=== PATIENT | female | born 1970 | race Caucasian/White ===

== ENCOUNTER 2018-07-29 12:26 | Outpatient (CLI) | payer OTHER, SELFPAY ==
--- NOTE | 2018-07-29 12:00 | DI.RAD_ITS ---
SYMPTOMS/DIAGNOSIS: COUGH, POSSIBLE PNEUMONIA, R09.89 PA AND LATERAL CHEST: Comparison 10/19/16. The heart is normal in size. The lungs are clear. The mediastinal structures and pleura appear intact. CONCLUSION: Normal chest.
== END 2018-07-29 12:46 ==
PROVIDERS: PCP Student in an Organized Health Care Education/Training Program; Visit Provider Student in an Organized Health Care Education/Training Program
DX: R05 Cough (principal); R09.89 Other specified symptoms and signs involving the circulatory and respiratory systems
CPT/HCPCS: 71046

== ENCOUNTER 2018-08-17 10:31 | Outpatient (CLI) | payer OTHER, SELFPAY ==
--- NOTE | 2018-08-17 14:18 | DI.RAD_ITS ---
SYMPTOMS/DIAGNOSIS: COUGH X 1 MO, EX-SMOKER, H/O WALKING PNEUMONIA, R05 PA AND LATERAL CHEST: The heart is normal in size. The lungs are clear. The mediastinal structures and pleura appear intact. SUMMARY: Normal chest.
== END 2018-08-17 10:51 ==
PROVIDERS: PCP Student in an Organized Health Care Education/Training Program; Visit Provider Student in an Organized Health Care Education/Training Program
DX: R05 Cough (principal); Z87.891 Personal history of nicotine dependence
CPT/HCPCS: 71046

== ENCOUNTER 2018-09-30 11:48 | Outpatient (CLI) | payer OTHER, SELFPAY ==
[2018-09-30 12:15] LABS: Abs Immature Grans 0.01 k/cumm (0.0-0.09); Absolute Basophil Count 0.02 k/cumm (0.0-0.2); Absolute Eosinophil Count 0.08 k/cumm (0.0-0.7); Absolute Lymphocyte Count 1.26 k/cumm (1.2-3.4); Absolute Monocyte Count 0.38 k/cumm (0.11-0.7); Absolute Neutrophil Count 4.33 k/cumm (1.2-6.7); Basophils % 0.3; Eosinophils % 1.3; HCT 42.2 % (36.0-46.0); HGB 14.1 g/dL (12.0-15.5); Immature Grans % 0.2; Lymphocytes % 20.7; Mean Corp. HGB Concentration 33.4 g/dL (32.0-36.0); Mean Corpuscular Hemoglobin 30.2 pg (27.0-33.0); Mean Corpuscular Volume 90.4 fL (80-95); Mean Platelet Volume 10.4 fL (8.0-11.0); Monocytes % 6.3; Neutrophils % 71.2; Platelet Count 235 x1000/uL (130-400); RBC 4.67 m/cumm (4.00-5.20); RBC Distribution Width 13.9 % (11.7-14.6); White Blood Cell Count 6.08 k/cumm (4.4-10.8)
[2018-09-30 12:57] LABS: ALT 30 U/L (12-78); AST 16 U/L (15-37); Albumin 3.8 g/dL (3.4-5.0); Alkaline Phosphatase 36 U/L (46-116); Anion Gap 10.5 mmol/L (3-11); BUN 10 mg/dL (7-18); Bilirubin, Total 0.5 mg/dL (0.2-1.0); CO2 28.5 mmol/L (21.0-32.0); CREATININE 0.64 mg/dL (0.55-1.02); Chloride 101 mmol/L (98-107); Glucose 96 mg/dL (70-100); Potassium 3.9 mmol/L (3.5-5.1); Sodium 140 mmol/L (136-145); Total Protein 7.1 g/dL (6.4-8.2)
== END 2018-09-30 12:08 ==
PROVIDERS: PCP Student in an Organized Health Care Education/Training Program; Visit Provider Nurse Practitioner Family
DX: R10.32 Left lower quadrant pain (principal)
CPT/HCPCS: 36415; 80053; 85025

== ENCOUNTER 2019-01-16 07:11 | Outpatient (CLI) | payer OTHER, SELFPAY ==
[2019-01-16 08:52] LABS: Calculated LDL 144; Cholesterol 234 mg/dL (50-200); Glucose 83 mg/dL (70-100); HDL Cholesterol 73 mg/dL (40-60); TSH (W/Ref FT4) 0.34 uIU/mL (0.358-3.74); Triglyceride 85 mg/dL (30-150)
[2019-01-16 09:36] LABS: FREE T4 0.93 ng/dL (0.76-1.46)
== END 2019-01-16 07:31 ==
PROVIDERS: PCP Student in an Organized Health Care Education/Training Program; Visit Provider Nurse Practitioner Family
DX: Z13.220 Encounter for screening for lipoid disorders (principal); E04.1 Nontoxic single thyroid nodule; Z13.1 Encounter for screening for diabetes mellitus
CPT/HCPCS: 36415; 80061; 82947; 83721; 84439; 84443

== ENCOUNTER 2019-02-01 00:44 | Outpatient (CLI) | payer OTHER, SELFPAY ==
--- NOTE | 2019-02-01 07:51 | DI.MAMMO_ITS ---
SYMPTOM/DIAGNOSIS: SCREENING, Z12.31 MAMMOGRAMS: Mammograms were interpreted according to the usual protocol including computer analysis with CAD system, tomosynthesis and C view imaging. The breasts are heterogeneously dense. No dominant mass or clumped microcalcification is identified in either breast. The current examination is compared with previous examinations including 09/2017 and there is question of increased prominence of a focal area of asymmetric density projected in the central portion of the right breast on CC view. Additional mammographic views of this area are requested for further evaluation to evaluate the possibility of a mass. No other specific abnormality is seen. No additional change in comparison with the previous examinations. IMPRESSION: Additional mammographic views of the right breast requested as described above. Right breast ultrasound recommended as well depending on results of the additional mammographic views. Category 0. Breast density, Category C. MQSA ASSESSMENT OF FINDINGS: Incomplete: Needs additional imaging evaluation. Category 0. Patient will receive a letter notifying them of these results. Bi-RADS category C. The breasts are heterogeneously dense, which may obscure small masses.
== END 2019-02-01 01:04 ==
PROVIDERS: PCP Student in an Organized Health Care Education/Training Program; Visit Provider Nurse Practitioner Family
DX: Z12.31 Encounter for screening mammogram for malignant neoplasm of breast (principal); R92.8 Other abnormal and inconclusive findings on diagnostic imaging of breast
CPT/HCPCS: 77063; 77067

== ENCOUNTER 2019-02-08 08:29 | Outpatient (CLI) | payer OTHER, SELFPAY ==
--- NOTE | 2019-02-08 09:00 | DI.COMBO_ITS ---
SYMPTOM/DIAGNOSIS: F/U INCREASED PROMINENCE OF ASYMMETRIC DENSITY RT BREAST ON MAMMOGRAM RIGHT BREAST ADDITIONAL VIEWS AND RIGHT BREAST ULTRASOUND: Additional images are interpreted according to the usual protocol including tomosynthesis and 2D imaging. A craniocaudad compression spot film of the right breast was obtained today and reveals dense fibroglandular tissue. There is no definite mass. At ultrasound, no cyst or mass is seen. IMPRESSION: No evidence of malignancy, category 1, yearly screening mammography is recommended. Breast density, Category C. MQSA ASSESSMENT OF FINDINGS: Negative. Category 1. Patient will receive a letter notifying them of these results. Bi-RADS category C. The breasts are heterogeneously dense, which may obscure small masses.
== END 2019-02-08 08:49 ==
PROVIDERS: PCP Student in an Organized Health Care Education/Training Program; Visit Provider Nurse Practitioner Family
DX: Z12.31 Encounter for screening mammogram for malignant neoplasm of breast (principal); R92.8 Other abnormal and inconclusive findings on diagnostic imaging of breast; N64.59 Other signs and symptoms in breast
CPT/HCPCS: 76642; 77063; 77067

== ENCOUNTER 2019-11-15 10:42 | Outpatient (CLI) | payer OTHER, SELFPAY ==
--- NOTE | 2019-11-15 09:15 | DI.RAD_ITS ---
EXAM: XR HIP RT COMPLETE AP PELVIS INDICATION: pain COMPARISON: No exams were available for comparison TECHNIQUE: 2D digital imaging was performed. FINDINGS: Mild bilateral acetabular spurring. The hip joint spaces are well maintained. SI joints and pubic s ymphysis are unremarkable. IMPRESSION: Mild degenerative changes of both hips. DATA REPOSITORY: RADIATION DOSE DELIVERED:
== END 2019-11-15 11:02 ==
PROVIDERS: PCP Student in an Organized Health Care Education/Training Program; Visit Provider Orthopaedic Surgery
DX: M25.551 Pain in right hip (principal); M16.0 Bilateral primary osteoarthritis of hip
CPT/HCPCS: 73502

== ENCOUNTER 2020-06-11 11:43 | Emergency (ER) | payer OTHER, SELFPAY ==
[2020-06-11] VITALS (20 sets, daily range): BP systolic 153–169; BP diastolic 70–89; PULSE 78–114; RESP 10–30; TEMP 36.4–36.6; O2SAT 98–99
--- NOTE | 2020-06-11 11:45 | RT.EKG_ITS ---
APPROVED REPORT Exam: Resting ECG Patient Location: E HR:100 bpm ECG Measurements Heart Rate 100 AXIS MT 154 P 60 QRSd 95 QRS 67 QT 335 T 1 QTc 432 Conclusion Fast sinus arrhythmia...V-rate 86-113, mean> 99 Anteroseptal infarct, old...Q >40mS, V1-V2. Sinus. PVCs. No STEMI. I have reviewed and interpreted ECG and agree with software generated interpretation.
--- NOTE | 2020-06-11 11:48 | W.ED.GENAD ---
Discharge Plan Disposition Patient Disposition: HOME Condition: Improving Discharge Details Clinical Impression: Dyspnea, Thoracic back pain Primary Care Provider: Roxana Breen ED Provider: Soraya Narayan Home Meds and New Rx's Prescriptions: Continued epinephrine 0.3 mg/0.3 mL auto-injector 0.3 mg IM PRN Qty: 2 RF: 1 PROVENTIL HFA 18 GM HFA.AER.AD 2 puff Inhalation Q4H PRN Qty: 1 RF: 11 fluticasone propionate 50 mcg/actuation spray,suspension 2 spray JAYDEN DAILY Qty: 16 RF: 2 Flovent HFA 110 mcg/actuation HFA aerosol inhaler 2 puff Inhalation BID Qty: 12 RF: 2 ibuprofen 200 MG tablet 1 tab PO PRN RF: 0 loratadine 10 MG tablet 1 tab PRN PRNRF: 0 docusate sodium [Stool Softener] 100 MG capsule 100 mg PO HS RF: 0 L.acidoph, paracasei,B. lactis 1 EACH capsule 1 ea PO DAILY RF: 0 Discharge Instructions Instructions: Dyspnea (ED), Back Pain (ED) Additional Instructions: Drink plenty of fluids and get plenty of rest. Take the Zofran as needed and directed for nausea and vomiting. Alternate tylenol and motrin as needed and directed for pain. Call your primary care doctor's office tomorrow to schedule a follow-up appointment for reevaluation. Return immediately to the emergency department if you develop any worsening or new concerning symptoms. Discharge Data Discharge Date/Time-TO BE ENTERED AT DEPARTURE: 06/11/20 16:50 Discharge Physician: Soraya Narayan Medical Decision Making 1200 -- 50-year-old female with a history of asthma and seasonal allergies who presents for cough, diarrhea, nausea and headache that are resolving, and shortness of breath and left mid back pain since last night. EKG on arrival notes a rate of 100, PVCs, sinus with [address] depression in aVF, V4 and V5. No acute ST elevation. No old EKG to compare. Covid test obtained yesterday and negative. Blood pressure is elevated. Patient appears nontoxic and in no acute distress. Her lungs are clear. She has no chest or back tenderness. Differential diagnosis includes viral syndrome, PE, ACS, electrolyte abnormality, dehydration. Will place an IV, bolus IV fluids, screening labs, CT chest and plan for repeat troponin and EKG. 1400 -- labs and imaging reviewed. White blood cell count 4.21. Potassium 2.9, will replete. Troponin negative. CT chest negative. Patient states her shortness of breath is resolved. Will give a dose of Toradol for her back pain and reassess. 1600 --repeat troponin negative. EKG now notes resolution of ST depression noted in first EKG. There is no STEMI and is nondiagnostic. Patient reassessed and she denies any acute symptoms at this time and feels good to go home. She denies any shortness of breath or back pain. Advised to follow up with the primary care doctor for re-evaluation. Usual and customary return precautions given prior to discharge. Medical Records Medical records reviewed: Yes I reviewed the patient's medical records. Imaging Data Radiologic Study: Radiologist's impression: CT CHEST PE CTA CLINICAL HISTORY: L sided pleuritic chest pain, r/o PE. TECHNIQUE: Imaging Protocol: Axial CT angiography was performed with multi-slice acquisition and multi-planar and/or 3D reconstructions. CONTRAST MATERIAL: Intravenous: Omnipaque 350 Contrast volume:61 mL COMPARISON: CT CHEST WITH CONTRAST from 01/27/2017 CT ABD PELVIS WITH CONTRAST from 04/12/2017 FINDINGS: Pulmonary Arteries: No evidence of filling defect to suggest pulmonary emboli. Tracheobronchial tree: Patent where visualized. Mediastinum and May: No dominant adenopathy or fluid collection. Multiple thyroid nodules are present. The largest measures 1.1 cm. Nonemergent thyroid ultrasound should be considered for further evaluation. Pulmonary parenchyma: No consolidation or dominant measurable mass. No architectural distortion. There is stable peripheral scarring in the right upper lobe. This is unchanged compared to 01/27/2017. Pleura: No effusion or pneumothorax. Heart: The heart is not dilated. No coronary artery calcifications are seen. No pericardial effusion. Aorta: Thoracic aorta non-dilated. No evidence of dissection. Upper abdomen: Unremarkable. Bones: Normal. Soft tissues: Unremarkable. IMPRESSION: No evidence of pulmonary embolism, thoracic aortic dissection or aneurysm. Lab Data Lab results reviewed: Yes I reviewed the patient's lab results. Labs: Laboratory Tests Range/Units 06/11/20 06/11/20 06/11/20 12:04 12:04 12:04 WBC (4.4-10.8) 10^3/uL 4.21 L RBC (3.93-5.22) 10^6/uL 5.13 Hgb (11.2-15.7) g/dL 15.2 Hct (36.0-46.0) % 45.4 MCV (80-95) fL 88.5 MCH (27.0-33.0) pg 29.6 MCHC (32.0-36.0) % 33.5 RDW (11.7-14.6) % 13.0 Plt Count (130-400) 10^3/uL 253 MPV (8.0-11.0) fL 10.1 Immature Gran % 0.2 Neutrophils % 59.4 Lymphocytes % 29.7 Monocytes % 7.4 Eosinophils % 2.6 Basophils % 0.7 Nucleated RBC % % 0 Absolute Neutrophils (1.2-6.7) 10^3/uL 2.50 Absolute Lymphocytes (1.2-3.4) 10^3/uL 1.25 Absolute Monocytes (0.1-0.8) 10^3/uL 0.31 Absolute Eosinophils (0.0-0.7) 10^3/uL 0.11 Absolute Basophils (0.0-0.2) 10^3/uL 0.03 PT (9.3-11.0) sec 10.6 INR (0.9-1.1) 1.1 APTT (21.0-27.5) sec 24.1 Sodium (136-145) mmol/L 135 L Potassium (3.5-5.1) mmol/L 2.9 L* Chloride (98-107) mmol/L 100 Carbon Dioxide (21.0-32.0) mmol/L 27.9 Anion Gap (3-11) mmol/L 7.1 BUN (7-18) mg/dL 9 Creatinine (0.55-1.02) mg/dL 0.87 Estimated GFR/1.73 m2 (mL/min/1.73m2) >= 60.00 Glucose (74-106) mg/dL 127 H Calcium (8.5-10.1) mg/dL 8.9 Magnesium (1.8-2.4) mg/dL 1.9 Total Bilirubin (0.2-1.0) mg/dL 0.5 AST (15-37) U/L 12 L ALT (14-59) U/L 15 Alkaline Phosphatase (46-116) U/L 43 L Troponin I (<0.06) ng/mL < 0.05 Total Protein (6.4-8.2) g/dL 7.4 Albumin (3.4-5.0) g/dL 4.1 Range/Units 06/11/20 15:15 WBC (4.4-10.8) 10^3/uL RBC (3.93-5.22) 10^6/uL Hgb (11.2-15.7) g/dL Hct (36.0-46.0) % MCV (80-95) fL MCH (27.0-33.0) pg MCHC (32.0-36.0) % RDW (11.7-14.6) % Plt Count (130-400) 10^3/uL MPV (8.0-11.0) fL Immature Gran % Neutrophils % Lymphocytes % Monocytes % Eosinophils % Basophils % Nucleated RBC % % Absolute Neutrophils (1.2-6.7) 10^3/uL Absolute Lymphocytes (1.2-3.4) 10^3/uL Absolute Monocytes (0.1-0.8) 10^3/uL Absolute Eosinophils (0.0-0.7) 10^3/uL Absolute Basophils (0.0-0.2) 10^3/uL PT (9.3-11.0) sec INR (0.9-1.1) APTT (21.0-27.5) sec Sodium (136-145) mmol/L Potassium (3.5-5.1) mmol/L Chloride (98-107) mmol/L Carbon Dioxide (21.0-32.0) mmol/L Anion Gap (3-11) mmol/L BUN (7-18) mg/dL Creatinine (0.55-1.02) mg/dL Estimated GFR/1.73 m2 (mL/min/1.73m2) Glucose (74-106) mg/dL Calcium (8.5-10.1) mg/dL Magnesium (1.8-2.4) mg/dL Total Bilirubin (0.2-1.0) mg/dL AST (15-37) U/L ALT (14-59) U/L Alkaline Phosphatase (46-116) U/L Troponin I (<0.06) ng/mL < 0.05 Total Protein (6.4-8.2) g/dL Albumin (3.4-5.0) g/dL ECG Data Attestation: I personally reviewed and interpreted this ECG (s) as follows: Interpretation: #1 -- rate of 100, sinus, PVCs, T wave inversion in lead III. 1mm ST depression in aVF, V4-5, no acute ST elevation, OK 154, QRS 95, QTc 432. #2 -- rate of 86, sinus, PVCs. T wave inversion in lead III. Now noted resolution of ST depression in aVF, V4 V5.. No acute ST elevation. OK 139. QRS 88. QTc 424. HPI General Mode of arrival: ambulatory. Date/Time Provider Initiated Documentation: 06/11/20 11:47. Limitations to Documentation: no limitations. Information obtained by: patient. HPI Narrative: Pt is a 50yo F w/ a h/o asthma, endometrial ablation, tubal ligation who presents to the ED w/ a c/o nausea over the past 2 days and headache yesterday which are now improving and shortness of breath and left mid back pain that is worse with deep breath since last night. Patient states the symptom bothering her the most at this time is the shortness of breath and left mid back pain. She denies any anterior chest pain, fever, vomiting, abdominal pain, recent travel or recent known sick contacts. She states last week she was in a small gathering of approximately 15 people who were visiting her dying grandmother. She states everyone was wearing a mask and she denies any known exposure to any sick contacts or someone with coronavirus. She had a Covid test obtained yesterday at the [facility] and result today was negative. Patient admits to some mild cough but denies any significant production. She does also admit to a few episodes of diarrhea. She denies any loss of sense of smell or taste. She currently denies any headache or neck pain. Related Data Home Medications Medication Instructions Recorded Confirmed ibuprofen 1 tab PO PRN 11/17/13 06/11/20 loratadine 1 tab PRN PRN 12/31/14 06/11/20 L.acidoph, paracasei,B. lactis 1 ea PO DAILY 10/08/17 06/11/20 docusate sodium [Stool Softener] 100 mg PO HS 10/08/17 06/11/20 epinephrine 0.3 mg/0.3 mL 0.3 mg IM PRN #2 each 08/17/18 06/11/20 injection, auto-injector fluticasone propionate 50 2 spray JAYDEN DAILY #16 gm 12/15/19 06/11/20 mcg/actuation nasal spray,suspension fluticasone propionate 110 2 puff INHALATION BID #12 gm 04/17/20 06/11/20 mcg/actuation HFA aerosol inhaler Previous Rx's Medication Instructions Recorded epinephrine 0.3 mg/0.3 mL 0.3 mg IM PRN #2 each 08/17/18 injection, auto-injector fluticasone propionate 50 2 spray JAYDEN DAILY #16 gm 12/15/19 mcg/actuation nasal spray,suspension fluticasone propionate 110 2 puff INHALATION BID #12 gm 04/17/20 mcg/actuation HFA aerosol inhaler Allergies Allergy/AdvReac Type Severity Reaction Status Date / Time venom-honey bee Allergy Severe Verified 06/11/20 12:04 metronidazole [From Flagyl] AdvReac Intermediate nausea/diar Verified 06/11/20 12:04 charlie oxycodone HCl [From Percocet] AdvReac Intermediate Visual Verified 06/11/20 12:04 Disturbances COMPOUND BENZOIN TINCTURE AdvReac Intermediate BLISTER/RED Uncoded 06/11/20 12:04 NESS Review of Systems All systems reviewed & are unremarkable except as noted in HPI and below Constitutional Constitutional: Reports as per HPI, Denies chills, Denies fever(s) and Reports headache(s) Eyes Eyes: Denies blurry vision ENT Ears, Nose, Mouth, and Throat: Denies dizziness, Reports headache(s), Denies sore throat and Denies throat swelling Cardiovascular Cardiovascular: Denies chest pain and Reports dyspnea Respiratory Respiratory: Denies cough and Reports dyspnea Gastrointestinal Gastrointestinal: Denies abdominal pain, Denies diarrhea, Reports nausea and Denies vomiting Genitourinary Genitourinary: Denies hematuria and Denies dysuria Musculoskeletal Musculoskeletal: Reports back pain and Denies numbness Integumentary/Breasts Skin/Breast: Denies lesions and Denies rash Neurologic Neurologic: Denies dizziness, Reports headache(s), Denies localized weakness and Denies numbness Allergic/Immunologic Allergic/Immunologic: Denies throat swelling [facility] Medical History Diverticulitis (09/2017) 4th episode 09/30/18 with immediate relief and good resolution with Augmentin. Hx 3 DIV flares with NEG [place], confirming diffuse diverticulosis (09/2017). Unable to tolerate Cipro/Flagyl. 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 Hx Bx per 09/09/16 [facility] note. [ ] re-image 08/2017 Repetitive motion disorder of right shoulder Repetitive motion disorder of right shoulder Seems directly related to work motion between keyboard, mouse, and adding machine. [ ] PT [ ] Ortho [ ] Occ Med Right anterior shoulder pain Seasonal allergic rhinitis due to pollen (09/06/17) Summtime; takes antihistamine Surgical History section (~1991) Colonoscopy - MAC (10/12/17) Endometrial Ablation (~2008) FNA bx multinod goiter (06/24/12) Benign left foot surgery bone spurs on toe Ligation of fallopian tube (~04/1997) Family History Mother Hyperlipidemia Thyroid disorder Sister Thyroid disorder Maternal Aunt Breast cancer maternal Thyroid disorder Brother Diabetes Paternal Grandmother Diabetes Social History Smoking/Tobacco Use Status: Former Tobacco Use Smoking risk assessment performed?: Yes Alcohol Intake: current Alcohol Intake frequency: holidays/special occasions only Drug use: Never Substance use type: does not use Household members: spouse Housing: house Number of Children: 1 number of grandchildren: 2 current occupation: Director of patient accounts [employer] What type of physical activity do you participate in: none Seatbelt use: always Drive intox or ride w/intox restaurant delivery driver: No Working smoke detector in home: Yes Fire extinguisher in home: Yes Carbon monox detector in home: Yes Do you feel safe at home: Yes Do you feel safe in your relationship?: Yes Exam Const General: cooperative and healthy appearing Orientation: alert and awake HENMT Head: normal to inspection Ears: hearing grossly normal bilaterally, external ears normal and TM's normal bilaterally General nose exam: external nose normal Face and sinus: normal facial exam Mouth: oral mucosae normal Teeth and gingiva: dentition normal Throat: posterior oropharynx normal Eyes General: appearance normal, both eyes and all related structures Eyelids: eyelids normal Pupils: PERRL EOM: EOM intact bilaterally Neck Neck: normal visual inspection Lymphatic: no lymphadenopathy noted Chest Chest: normal inspection of the chest, normal palpation of entire chest wall and no tenderness Resp Effort & Inspection: normal respiratory effort and able to speak in complete sentences Auscultation: clear to auscultation bilaterally Cardio Rate: regular rate Rhythm: regular rhythm GI Inspection: normal to inspection Palpation: soft, not firm, no guarding, no hepatosplenomegaly, no masses and nontender Auscultation: normal bowel sounds Back/Spine/Pelvis Back: no CVA tenderness Thoracic/Lumbar Spine: thoracic and lumbar spine normal to inspection and No paraspinal tenderness Skin General skin exam: no rashes or lesions noted Neuro General: patient alert and patient awake Cognition: normal cognition Speech: speech normal Gait: normal gait Motor: muscle tone normal throughout Sensory Exam: no sensory deficits noted Extrem General: normal to inspection, full ROM and capillary refill normal Psych Appearance: grossly normal Mental Status: mental status grossly normal Speech and Movement: speech and movement normal Affect: normal affect Thought Process: normal
[2020-06-11 12:17] LABS: Abs Immature Grans 0.01 10^3/uL (0.0-0.06); Absolute Basophil Count 0.03 10^3/uL (0.0-0.2); Absolute Eosinophil Count 0.11 10^3/uL (0.0-0.7); Absolute Lymphocyte Count 1.25 10^3/uL (1.2-3.4); Absolute Monocyte Count 0.31 10^3/uL (0.1-0.8); Basophils % 0.7; Eosinophils % 2.6; HCT 45.4 % (36.0-46.0); HGB 15.2 g/dL (11.2-15.7); Immature Grans % 0.2; Lymphocytes % 29.7; MCH 29.6 pg (27.0-33.0); MCHC 33.5 % (32.0-36.0); MCV 88.5 fL (80-95); MPV 10.1 fL (8.0-11.0); Monocytes % 7.4; Neutrophils % 59.4; Nucleated RBC 0 %; Platelet Count 253 10^3/uL (130-400); RBC 5.13 10^6/uL (3.93-5.22); RDW-SD 42.3 fL; WBC 4.21 10^3/uL (4.4-10.8)
--- NOTE | 2020-06-11 12:30 | DI.CT_ITS ---
EXAM: CT CHEST PE CTA CLINICAL HISTORY: L sided pleuritic chest pain, r/o PE. TECHNIQUE: Imaging Protocol: Axial CT angiography was performed with multi-slice acquisition and mu lti-planar and/or 3D reconstructions. CONTRAST MATERIAL: Intravenous: Omnipaque 350 Contrast volume:61 mL COMPARISON: CT CHEST WITH CONTRAST from 01/27/2017 CT ABD PELVIS WITH CONTRAST from 04/12/2017 FINDINGS: Pulmonary Arteries: No evidence of filling defect to suggest pulmonary emboli. Tracheobronchial tree: Patent where visualized. Mediastinum and May: No dominant adenopathy or fluid collection. Multiple thyroid nodules are presen t. The largest measures 1.1 cm. Nonemergent thyroid ultrasound should be considered for further kizzy luation. Pulmonary parenchyma: No consolidation or dominant measurable mass. No architectural distortion. Ther e is stable peripheral scarring in the right upper lobe. This is unchanged compared to 01/27/2017. Pleura: No effusion or pneumothorax. Heart: The heart is not dilated. No coronary artery calcifications are seen. No pericardial effusion. Aorta: Thoracic aorta non-dilated. No evidence of dissection. Upper abdomen: Unremarkable. Bones: Normal. Soft tissues: Unremarkable. IMPRESSION: No evidence of pulmonary embolism, thoracic aortic dissection or aneurysm. Findings were discussed with the emergency department on the date of the examination. Incidental Findings RADIATION DOSE DELIVERED: 343.12mGy.cm Total DLP DATA REPOSITORY: All CT scans at this facility are submitted to the National Radiology Data Registry (NRDR) Dose Index Registry (DIR) with the [employer] (ACR). RADIATION OPTIMIZATION: All CT scans at this facility use at least one of these dose optimization te chniques: automated exposure control; mA and/or kV adjustment per patient size (includes targeted exa ms where dose is matched to clinical indication); or iterative reconstruction.
[2020-06-11 12:32] LABS: INR 1.1 (0.9-1.1); PTT Activated 24.1 sec (21.0-27.5); Prothrombin Time 10.6 sec (9.3-11.0)
[2020-06-11 12:55] LABS: ALT 15 U/L (14-59); AST 12 U/L (15-37); Albumin 4.1 g/dL (3.4-5.0); Alkaline Phosphatase 43 U/L (46-116); Anion Gap 7.1 mmol/L (3-11); BUN 9 mg/dL (7-18); Bilirubin, Total 0.5 mg/dL (0.2-1.0); CO2 27.9 mmol/L (21.0-32.0); CREATININE 0.87 mg/dL (0.55-1.02); Calcium 8.9 mg/dL (8.5-10.1); Chloride 100 mmol/L (98-107); Glucose 127 mg/dL (74-106); Magnesium 1.9 mg/dL (1.8-2.4); Sodium 135 mmol/L (136-145); Total Protein 7.4 g/dL (6.4-8.2)
[2020-06-11 12:59] LABS: Potassium 2.9 mmol/L (3.5-5.1); Troponin I < 0.05 ng/mL (<0.06)
[2020-06-11] MEDS: Potassium Chloride 20 MEQ TABCR 40 MEQ PO (13:07)
[2020-06-11] MEDS: Normal Saline 1,000 ML 1000 ML IV (13:07)
[2020-06-11] MEDS: Normal Saline - Diluent 50 ML VIAL IV (14:13)
[2020-06-11] MEDS: Omnipaque 350 MG/ML 100 ML BTL 61 ML IJ (14:14)
--- NOTE | 2020-06-11 14:15 | RT.EKG_ITS ---
APPROVED REPORT Exam: Resting ECG Patient Location: E HR:86 bpm ECG Measurements Heart Rate 86 AXIS SD 139 P 44 QRSd 88 QRS 57 QT 352 T 16 QTc 424 Conclusion Sinus rhythm...normal P axis, V-rate 60- 99 Ventricular premature complex...V complex w/ short R-R interval Anteroseptal infarct, old...Q >40mS, V1-V2. T wave inversion in III. No acute ST elevation or depression. PVCs. I have reviewed and interpreted ECG and agree with software generated interpretation.
[2020-06-11] MEDS: POTASSIUM CHLORIDE 20 MEQ/100 ML BAG 50 MEQ IVPB (14:46)
[2020-06-11] MEDS: Ketorolac 30 MG/ML VIAL IVP (14:47)
[2020-06-11 16:06] LABS: Troponin I < 0.05 ng/mL (<0.06)
[2020-06-11] MEDS: Ondansetron O.D.T. 4 MG TABEF, 3 TABS/BTL PO (16:48)
== END 2020-06-11 16:50 | disposition home or self-care (01) ==
PROVIDERS: Emergency Provider Physician Assistant; PCP Student in an Organized Health Care Education/Training Program
DX: R06.00 Dyspnea, unspecified (principal); M54.6 Pain in thoracic spine; E87.6 Hypokalemia; R11.0 Nausea; Z03.818 Encounter for observation for suspected exposure to other biological agents ruled out; J45.909 Unspecified asthma, uncomplicated
CPT/HCPCS: 36415; 71275; 80053; 93005; 96361; 96365; 96366; 96375; 99285; 83735; 84484; 85025; 85610; 85730; 93010; J1885; J3480; J3490

== ENCOUNTER 2020-07-02 09:52 | Outpatient (CLI) | payer OTHER, SELFPAY ==
--- NOTE | 2020-07-02 09:54 | DI.RAD_ITS ---
EXAM: XR SHOULDER RT COMPLETE 2+V CLINICAL HISTORY: shoulder pain TECHNIQUE: COMPARISON: No exams were available for comparison FINDINGS: Two views were obtained. Glenohumeral cartilaginous joint space appears fairly well maintained. A c ouple of small ossific or calcific bodies are projected posteriorly adjacent to the glenoid on axilla ry view, these may represent sequelae of degenerative change or old injury. No other significant bon y abnormality seen involving the glenohumeral joint. There are mild hypertrophic degenerative change s of the AC joint noted. IMPRESSION: RADIATION DOSE DELIVERED: Total DLP Total DLP
== END 2020-07-02 10:12 ==
PROVIDERS: PCP Student in an Organized Health Care Education/Training Program; Referring Provider Student in an Organized Health Care Education/Training Program; Visit Provider Student in an Organized Health Care Education/Training Program
DX: M25.511 Pain in right shoulder (principal); M19.011 Primary osteoarthritis, right shoulder
CPT/HCPCS: 73030

== ENCOUNTER 2020-09-12 12:20 | Outpatient (REF) | payer OTHER, SELFPAY ==
--- NOTE | 2020-09-12 10:45 | PAPFT_PTH ---
PATIENT: Leigh Ann Quinones LOC: [facility] U#:[id number] AGE/SX: 50/F ROOM: RE09/12/[address]: SHELBI Rodríguez : 1970 BED: DIS: 09/12/2020 SPEC #: [id number] RECD: 09/12/20 13:13 STATUS: JOHNAlexys REQ #: [id number] NETO: 09/12/20 10:[address]: Arina Mauricio DEPT: [facility] Cytology RECD BY: Beatris Truong ENTERED: 09/12/20 13:13 SP TYPE: PAPFT OTHR DR: Roxana Breen, DO Tissues: 1 - CX/ENDOCX FOR PAP SMEARS Procedures: PAP THIN PREP/UVM Screening HPV DNA PROBE Comments: [id number]
== END 2020-09-12 12:21 | disposition home or self-care (01) ==
LOC: LBN 12:20
PROVIDERS: PCP Student in an Organized Health Care Education/Training Program; Visit Provider Nurse Practitioner Family
DX: Z12.4 Encounter for screening for malignant neoplasm of cervix (principal); Z11.51 Encounter for screening for human papillomavirus (HPV)
CPT/HCPCS: 88142; 87624

== ENCOUNTER 2020-09-16 02:17 | Outpatient (CLI) | payer OTHER, SELFPAY ==
--- NOTE | 2020-09-16 16:00 | DI.MAMMO_ITS ---
EXAM: MAMMO SCREENING CLINICAL HISTORY: screening TECHNIQUE: Mammograms were interpreted according to the usual protocol including computer analysis w [employer] CAD system, tomosynthesis and C-view imaging. COMPARISON: 2010 through 2018 FINDINGS: The breasts are composed of heterogeneously dense fibroglandular densities, Breast Density category C . No suspicious masses or suspicious microcalcifications are seen. No skin thickening or abnormal axillary lymph nodes are seen. There has been no significant change from prior exams. IMPRESSION: BI-RADS Category 1, Negative mammogram. Yearly screening mammography is recommended. Breast Density Category C, heterogeneously Dense. The mammogram demonstrates the patient's breast tissue is dense. Dense breast tissue is very common a nd is not abnormal but dense breast tissue can make it harder to find cancer on a mammogram. Also, de nse breast tissue may increase breast cancer risk. This information about the result of the mammogram report was provided to the patient to raise their awareness. Use this report when you speak with the patient about their risks for breast cancer, which includes their family history. At that time, you may recommend additional screening tests (Ultrasound or MRI) as they might be useful based on their r isk. A negative radiographic report should not delay biopsy if a dominant or clinically suspicious mass is present. Up to ten percent of cancers are not identified on mammography. A negative report may reinforce clinical impression. Adenosis and dense breasts may obscure an underlying neoplasm. False positive reports average 6 to 10%.
== END 2020-09-16 02:18 ==
LOC: DI 02:17
PROVIDERS: PCP Student in an Organized Health Care Education/Training Program; Visit Provider Nurse Practitioner Family
DX: Z12.31 Encounter for screening mammogram for malignant neoplasm of breast (principal)
CPT/HCPCS: 77063; 77067

== ENCOUNTER 2020-11-11 11:17 | Outpatient (CLI) | payer OTHER, SELFPAY ==
--- NOTE | 2020-11-11 10:45 | DI.RAD_ITS ---
EXAM: XR FOOT LT COMPLETE CLINICAL HISTORY: foot pain. TECHNIQUE: 2D digital imaging was performed. COMPARISON: CR LEFT FOOT COMPLETE from 03/22/2014 FINDINGS: Again noted is fusion hardware across the dorsal aspect of the great toe metatarsophalangeal joint wi th fusion across this joint evident. There is no evidence of fracture or diastasis of the Lisfranc j oint. No radiographic evidence of hardware loosening no radiographic evidence of osteomyelitis. Bon e density is normal. No inferior calcaneal spur. No pes planus. No erosions. IMPRESSION: DATA REPOSITORY: RADIATION DOSE DELIVERED:
== END 2020-11-11 11:18 | disposition home or self-care (01) ==
LOC: DIORS 11:18
PROVIDERS: PCP Student in an Organized Health Care Education/Training Program; Referring Provider Student in an Organized Health Care Education/Training Program; Visit Provider Physician Assistant Surgical
DX: M79.672 Pain in left foot (principal); Z98.890 Other specified postprocedural states
CPT/HCPCS: 73630

== ENCOUNTER 2020-12-24 13:36 | Outpatient (CLI) | payer OTHER, SELFPAY ==
--- NOTE | 2020-12-24 10:45 | DI.CT_ITS ---
Exam(s) CT ABDOMEN PELVIS W EXAM: CT ABDOMEN PELVIS W INDICATION: r/o diverticulitis, abd pain, hx diverticulitis, R10.9, Z87.19. COMPARISON: CT ABD PELVIS WITH CONTRAST from 04/12/[address] CHEST PE CTA from 06/11/2020 TECHNIQUE: FINDINGS: CT examination of the abdomen and pelvis was performed with a bolus infusion of 100 cc of Omnipaque 3 50. Images obtained through the lung bases are unremarkable. The liver is unremarkable in appearance. Gallbladder and bile ducts are CT normal. Pancreas appears normal. Spleen is unremarkable in appearance. Adrenals appear normal. The kidneys are unremarkable with no evidence of hydronephrosis, nephrolithiasis, or renal mass excep t for a subcentimeter presumed right renal cyst... Urinary bladder unremarkable. Abdominal aorta is of normal diameter and no major vascular abnormality is seen. No significant abdominal wall hernia. No abdominal or pelvic adenopathy. Multiple calcified uterine fibroids are noted. Appendix is normal. There is thickened edematous wall of the mid sigmoid colon. There is marked pericolonic fat edema an d there is a small fluid collection pelvis. Findings are highly suggestive of acute diverticulitis a nd are similar to findings seen on prior abdominal CT March 2017. IMPRESSION: The appearance of the mid sigmoid colon and adjacent structures is highly suggestive of acute sigmoid diverticulitis. Findings were conveyed to . RADIATION DOSE DELIVERED: 883.24mGy.cm Total DLP 883.24mGy.cm Total DLP RADIATION OPTIMIZATION: All CT scans at this facility use at least one of these dose optimization te chniques: automated exposure control; mA and/or kV adjustment per patient size (includes targeted exa ms where dose is matched to clinical indication); or iterative reconstruction.
[2020-12-24] MEDS: Breeza Beverage 473 ML BTL PO ×2 (11:19→11:20)
[2020-12-24 11:34] LABS: Anion Gap 8.7 mmol/L (3-11); BUN 12 mg/dL (7-18); CO2 29.3 mmol/L (21.0-32.0); CREATININE 0.8 mg/dL (0.55-1.02); Calcium 8.9 mg/dL (8.5-10.1); Chloride 100 mmol/L (98-107); Glucose 91 mg/dL (74-106); Potassium 3.9 mmol/L (3.5-5.1); Sodium 138 mmol/L (136-145)
[2020-12-24] MEDS: Omnipaque 350 MG/ML 100 ML BTL IJ (12:42)
[2020-12-24] MEDS: Normal Saline - Diluent 50 ML VIAL IV (12:44)
== END 2020-12-24 13:56 ==
PROVIDERS: PCP Student in an Organized Health Care Education/Training Program; Visit Provider Student in an Organized Health Care Education/Training Program
DX: R10.9 Unspecified abdominal pain (principal); Z87.19 Personal history of other diseases of the digestive system; K63.89 Other specified diseases of intestine
CPT/HCPCS: 80048; 74177; J3490

== ENCOUNTER 2021-08-22 09:08 | Outpatient (CLI) | payer OTHER, SELFPAY ==
--- NOTE | 2021-08-22 09:00 | DI.RAD_ITS ---
Exam(s) XR CHEST 2V PA LATERAL EXAM: XR CHEST 2V PA LATERAL CLINICAL HISTORY: r/o walking pneumonia, chest congestion, asthma exacerbation, R09.89, TECHNIQUE: 2D digital imaging was performed of the chest. Two images were obtained. PA and lateral views were obtained. COMPARISON: CR XR CHEST 2V PA LATERAL from 08/17/2018 FINDINGS: MEDIASTINUM: Normal. HEART: Normal. PULMONARY VASCULATURE: Normal. LUNGS: Clear. PLEURAL SPACE: No pleural effusion or pneumothorax. BONE:Within normal limits for the patient's age. OTHER FINDINGS:Normal. IMPRESSION: No acute pulmonary findings. DATA REPOSITORY: RADIATION DOSE DELIVERED:
== END 2021-08-22 09:28 ==
PROVIDERS: PCP Student in an Organized Health Care Education/Training Program; Visit Provider Student in an Organized Health Care Education/Training Program
DX: J45.901 Unspecified asthma with (acute) exacerbation (principal); R09.89 Other specified symptoms and signs involving the circulatory and respiratory systems
CPT/HCPCS: 71046

== ENCOUNTER 2021-08-22 14:27 | Outpatient (REF) | payer OTHER, SELFPAY ==
[2021-08-24 12:15] LABS: COVID-19 RT-PCR UVMMC Result Negative (Negative)
== END 2021-08-22 14:28 | disposition home or self-care (01) ==
LOC: LBN 14:27
PROVIDERS: PCP Student in an Organized Health Care Education/Training Program; Visit Provider Student in an Organized Health Care Education/Training Program
DX: R09.81 Nasal congestion (principal); Z20.822 Contact with and (suspected) exposure to COVID-19
CPT/HCPCS: U0003

== ENCOUNTER 2021-08-27 09:48 | Outpatient (CLI) | payer OTHER, SELFPAY ==
--- NOTE | 2021-08-27 08:29 | DI.RAD_ITS ---
Exam(s) XR SINUS COMPLETE 3+V EXAM: XR SINUS COMPLETE 3+V CLINICAL HISTORY: evaluate for anatomical anomaly, polyps,sinus congestion,rhinitis,j31.0,. TECHNIQUE: 2D digital imaging was performed. COMPARISON: CT HEAD WITHOUT CONTRAST from 04/27/2010 MR MRI BRAIN - PITUITARY W/WO from 06/04/2010 FINDINGS: The paranasal sinuses are clear. No evidence of air-fluid level. The nasal septum is midline. No frac ture or bony deformity. No lytic or sclerotic bony lesions. IMPRESSION: Unremarkable radiographs of the sinuses. DATA REPOSITORY: RADIATION DOSE DELIVERED:
== END 2021-08-27 10:08 ==
PROVIDERS: PCP Student in an Organized Health Care Education/Training Program; Visit Provider Student in an Organized Health Care Education/Training Program
DX: J31.0 Chronic rhinitis (principal); R09.81 Nasal congestion; R09.89 Other specified symptoms and signs involving the circulatory and respiratory systems
CPT/HCPCS: 70210; 70220

== ENCOUNTER 2021-09-20 11:13 | Outpatient (CLI) | payer OTHER, SELFPAY ==
--- NOTE | 2021-09-20 11:30 | DI.RAD_ITS ---
Exam(s) XR FOOT LT COMPLETE EXAM: XR FOOT LT COMPLETE CLINICAL HISTORY: S/P fall, has hardware and h/o stress fx. TECHNIQUE: 2D digital imaging was performed. COMPARISON: CR XR FOOT LT COMPLETE from 11/11/2020 FINDINGS: BONES: There are stable post operative changes present. No acute fracture or dislocation. JOINTS: The joint spaces are well maintained. No joint effusion is present. SOFT TISSUE: Normal. IMPRESSION: 1. Stable postoperative changes. 2. No acute abnormality. DATA REPOSITORY: RADIATION DOSE DELIVERED:
--- NOTE | 2021-09-20 12:00 | DI.VRAD_ITS ---
PROCEDURE INFORMATION: Exam: XR Left Foot Exam date and time: 09/20/2021 11:37 AM Age: 51 years old Clinical indication: Prior surgery; Surgery date: 6+ months; Surgery type: Left big toe fusion; Patient HX: Left foot pain, has hardware and h/o stress FX TECHNIQUE: Imaging protocol: XR Left foot. Views: 3 or more views. COMPARISON: CR XR FOOT LT COMPLETE 11/11/2020 11:03 AM FINDINGS: Bones/joints: Patient has had fusion of the 1st metatarsophalangeal joint. Hardware, alignment are unchanged. There is no new or acute bony abnormality. Soft tissues: Soft tissues are unremarkable. IMPRESSION: No new or acute findings. Dictated and Authenticated by: Bridget Godinez MD. Ordering:MEDHAT Canas MD
== END 2021-09-20 11:33 ==
PROVIDERS: PCP Student in an Organized Health Care Education/Training Program; Visit Provider Nurse Practitioner Family
DX: M79.672 Pain in left foot (principal); Z98.890 Other specified postprocedural states
CPT/HCPCS: 73630

== ENCOUNTER 2021-10-09 13:51 | Outpatient (CLI) | payer OTHER, SELFPAY ==
[2021-10-09 15:26] LABS: Abs Immature Grans 0.01 10^3/uL (0.0-0.06); Absolute Basophil Count 0.04 10^3/uL (0.0-0.2); Absolute Eosinophil Count 0.09 10^3/uL (0.0-0.7); Absolute Lymphocyte Count 1.23 10^3/uL (1.2-3.4); Absolute Monocyte Count 0.46 10^3/uL (0.1-0.8); Absolute Neutrophil Count 2.44 10^3/uL (1.2-6.7); Basophils % 0.9; Eosinophils % 2.1; HCT 43.7 % (36.0-46.0); HGB 14.1 g/dL (11.2-15.7); Immature Grans % 0.2; Lymphocytes % 28.8; MCH 30.3 pg (27.0-33.0); MCHC 32.3 % (32.0-36.0); MCV 93.8 fL (80-95); Monocytes % 10.8; Neutrophils % 57.2; Nucleated RBC 0 %; Platelet Count 264 10^3/uL (130-400); RBC 4.66 10^6/uL (3.93-5.22); RDW 13.1 % (11.7-14.6); RDW-SD 45.1 fL; WBC 4.27 10^3/uL (4.4-10.8)
[2021-10-09 15:41] LABS: ALT 18 U/L (14-59); AST 9 U/L (15-37); Albumin 4.1 g/dL (3.4-5.0); Alkaline Phosphatase 46 U/L (46-116); Anion Gap 6.1 mmol/L (3-11); BUN 17 mg/dL (7-18); Bilirubin, Total 0.4 mg/dL (0.2-1.0); CO2 29.9 mmol/L (21.0-32.0); CREATININE 0.9 mg/dL (0.55-1.02); Chloride 105 mmol/L (98-107); Glucose 94 mg/dL (74-106); Potassium 4.2 mmol/L (3.5-5.1); Sodium 141 mmol/L (136-145); Total Protein 7.5 g/dL (6.4-8.2)
== END 2021-10-09 13:52 | disposition home or self-care (01) ==
LOC: LBO 13:53
PROVIDERS: PCP Student in an Organized Health Care Education/Training Program; Visit Provider Student in an Organized Health Care Education/Training Program
DX: E86.0 Dehydration (principal); K57.30 Diverticulosis of large intestine without perforation or abscess without bleeding; R10.9 Unspecified abdominal pain; R11.2 Nausea with vomiting, unspecified
CPT/HCPCS: 36415; 80053; 85025

== ENCOUNTER 2021-10-10 21:05 | Outpatient (CLI) | payer OTHER, SELFPAY ==
--- NOTE | 2021-10-10 08:30 | DI.CT_ITS ---
Exam(s) CT ABDOMEN PELVIS W EXAM: CT ABDOMEN PELVIS W INDICATION: eval for diverticulitis, r/o abscess, lt sided abd pain. COMPARISON: CT CT ABDOMEN PELVIS W from 12/24/2020 TECHNIQUE: FINDINGS: CT examination of the abdomen and pelvis was performed with a bolus infusion of 100 cc of Omnipaque 3 50. Images obtained through the lung bases are unremarkable. The liver is unremarkable in appearance. Gallbladder and bile ducts are CT normal. Pancreas appears normal. Spleen is unremarkable in appearance. Adrenals appear normal. The kidneys are unremarkable with no evidence of hydronephrosis, nephrolithiasis, or renal mass. Inc idental sub centimeter right renal cyst noted. Urinary bladder unremarkable. Abdominal aorta is of normal diameter and no major vascular abnormality is seen. No abdominal wall hernia. No abdominal or pelvic adenopathy. The uterus contains at least 2 fibroids which are calcified period no gross adnexal mass period. Appendix is normal. There are multiple colonic diverticuli particularly in the sigmoid colon. No ev idence of diverticulitis or bowel obstruction. IMPRESSION: Negative CT examination of the abdomen and pelvis. RADIATION DOSE DELIVERED: 902.8mGy.cm Total DLP 902.8mGy.cm Total DLP !Error CTDIvol RADIATION OPTIMIZATION: All CT scans at this facility use at least one of these dose optimization te chniques: automated exposure control; mA and/or kV adjustment per patient size (includes targeted exa ms where dose is matched to clinical indication); or iterative reconstruction.
[2021-10-10] MEDS: Breeza Beverage 473 ML BTL 950 ML PO (08:55)
[2021-10-10] MEDS: Omnipaque 350 MG/ML 50 ML BTL PO (08:55)
[2021-10-10] MEDS: Omnipaque 350 MG/ML 100 ML BTL IJ (10:46)
== END 2021-10-10 21:25 ==
PROVIDERS: PCP Student in an Organized Health Care Education/Training Program; Visit Provider Student in an Organized Health Care Education/Training Program
DX: R10.9 Unspecified abdominal pain (principal); Z87.19 Personal history of other diseases of the digestive system
CPT/HCPCS: 74177; J3490; Q9967

== ENCOUNTER 2021-12-16 02:47 | Outpatient (CLI) | payer OTHER, SELFPAY ==
[2021-12-16 15:49] LABS: TSH (W/Ref FT4) 0.03 uIU/mL (0.36-3.74)
[2021-12-16 17:57] LABS: FREE T4 1.03 ng/dL (0.76-1.46)
== END 2021-12-16 02:48 | disposition home or self-care (01) ==
LOC: LBO 02:47
PROVIDERS: PCP Student in an Organized Health Care Education/Training Program; Visit Provider Nurse Practitioner Family
DX: E04.8 Other specified nontoxic goiter (principal)
CPT/HCPCS: 36415; 84439; 84443

== ENCOUNTER → 2022-01-13 00:30 | Outpatient (CLI) | payer OTHER, SELFPAY ==
--- NOTE | 2022-01-13 07:43 | DI.MAMMO_ITS ---
Exam(s) MAMMO SCREENING EXAM: MAMMO SCREENING CLINICAL HISTORY: screening TECHNIQUE: Mammograms were interpreted according to the usual protocol including computer analysis w [employer] CAD system, tomosynthesis and C-view imaging. COMPARISON: 2011 through 2020 FINDINGS: The breasts are composed of heterogeneously dense fibroglandular densities, Breast Density category C . No suspicious masses or suspicious microcalcifications are seen. No skin thickening or abnormal axillary lymph nodes are seen. There has been no significant change from prior exams. IMPRESSION: BI-RADS Category 1, Negative mammogram. Yearly screening mammography is recommended. Breast Density Category C, heterogeneously Dense. The mammogram demonstrates the patient's breast tissue is dense. Dense breast tissue is very common a nd is not abnormal but dense breast tissue can make it harder to find cancer on a mammogram. Also, de nse breast tissue may increase breast cancer risk. This information about the result of the mammogram report was provided to the patient to raise their awareness. Use this report when you speak with the patient about their risks for breast cancer, which includes their family history. At that time, you may recommend additional screening tests (Ultrasound or MRI) as they might be useful based on their r isk. A negative radiographic report should not delay biopsy if a dominant or clinically suspicious mass is present. Up to ten percent of cancers are not identified on mammography. A negative report may reinforce clinical impression. Adenosis and dense breasts may obscure an underlying neoplasm. False positive reports average 6 to 10%.
== END ==
PROVIDERS: PCP Student in an Organized Health Care Education/Training Program; Visit Provider Nurse Practitioner Family
DX: Z12.31 Encounter for screening mammogram for malignant neoplasm of breast (principal)
CPT/HCPCS: 77063; 77067

== ENCOUNTER → 2022-02-19 02:36 | Outpatient (CLI) | payer OTHER, SELFPAY ==
--- NOTE | 2022-02-19 07:30 | DI.US_ITS ---
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 TECHNIQUE: Ultrasound thyroid performed using standard protocol. COMPARISON: No exams were available for comparison FINDINGS: ISTHMUS: 2 mm RIGHT LOBE: Size: 6.1 x 2.7 x 2.4 cm Echogenicity: Normal. Vascularity: Normal. Nodules: Multiple right thyroid nodules are identified. The largest measures 1.8 x 1.5 x 1.7 cm. It is predominantly solid and isoechoic. It is not taller than wide and no echogenic foci are present. The margins appear smooth. This is consistent with a TIRADS level 3 nodule. Due to its size, foll ow-up is recommended. LEFT LOBE: Size: 5.8 x 2.6 x 2.5 cm Echogenicity: Normal. Vascularity: Normal. Nodules: Multiple thyroid nodules are identified. The largest is in the inferior pole and measures 3 x 2.1 x 2.6 cm. It is predominantly solid and isoechoic. It has smooth margins. No internal echog enic foci are seen. It is consistent with a TI rads level 3 nodule. Due to its size, FNA is recomme nded. The 2nd largest nodule measures 2.4 x 1.9 x 2.2 cm. It is predominantly solid and isoechoic. It has smooth margins. No echogenic foci are seen. It is also a TIRADS level 3 nodule. Due to its size, follow-up is recommended. OTHER FINDINGS: None. IMPRESSION: 1. Multinodular thyroid gland. 2. There is a 3 cm nodule in the inferior pole of the left lobe. Due to its size, FNA is recommended . DATA REPOSITORY:
--- NOTE | 2022-02-19 07:30 | DI.RAD_ITS ---
Exam(s) XR FOOT RT COMPLETE EXAM: XR FOOT RT COMPLETE CLINICAL HISTORY: r/o bony prominence/pathology cause lesion, corn, foot pain, L84, M79.671. TECHNIQUE: 2D digital imaging was performed of the right foot. Three images were obtained. AP, obl ique and lateral views were obtained. COMPARISON: CR RIGHT FOOT COMPLETE from 04/07/2012 FINDINGS: BONES: No acute fracture is present. No bony destructive lesion is seen. JOINTS: No dislocation present. Mild hypertrophic changes are seen on the dorsal aspect of the 1st ta rsometatarsal joint. SOFT TISSUE: Normal. IMPRESSION: Mild degenerative changes seen at the 1st tarsometatarsal joint. DATA REPOSITORY: RADIATION DOSE DELIVERED:
== END ==
PROVIDERS: PCP Student in an Organized Health Care Education/Training Program; Visit Provider Student in an Organized Health Care Education/Training Program
DX: L84 Corns and callosities (principal); M19.071 Primary osteoarthritis, right ankle and foot; E04.2 Nontoxic multinodular goiter; R91.1 Solitary pulmonary nodule
CPT/HCPCS: 73630; 76536

== ENCOUNTER 2022-11-23 04:38 | Outpatient (CLI) | payer OTHER, SELFPAY ==
[2022-11-23 07:23] LABS: Abs Immature Grans 0.01 10^3/uL (0.0-0.06); Absolute Basophil Count 0.05 10^3/uL (0.0-0.2); Absolute Lymphocyte Count 1.22 10^3/uL (1.2-3.4); Absolute Monocyte Count 0.34 10^3/uL (0.1-0.8); Absolute Neutrophil Count 2.12 10^3/uL (1.2-6.7); Basophils % 1.3; Eosinophils % 2.6; HGB 14.1 g/dL (11.2-15.7); Immature Grans % 0.3; Lymphocytes % 31.8; MCH 29.7 pg (27.0-33.0); MCHC 32.8 % (32.0-36.0); MCV 91 fL (80-95); MPV 10.1 fL (8.0-11.0); Monocytes % 8.9; Neutrophils % 55.1; Platelet Count 263 10^3/uL (130-400); RBC 4.75 10^6/uL (3.93-5.22); RDW 12.7 % (11.7-14.6); RDW-SD 42.3 fL; WBC 3.84 10^3/uL (4.4-10.8)
[2022-11-23 07:46] LABS: Anion Gap 4.8 mmol/L (3-11); BUN 18 mg/dL (7-18); CO2 30.2 mmol/L (21.0-32.0); CREATININE 0.8 mg/dL (0.55-1.02); Calcium 9.3 mg/dL (8.5-10.1); Chloride 108 mmol/L (98-107); Estimated GFR 88.05 (mL/min/1.73m2); Glucose 87 mg/dL (74-106); Potassium 4.1 mmol/L (3.5-5.1); Sodium 143 mmol/L (136-145)
== END 2022-11-23 04:39 | disposition home or self-care (01) ==
PROVIDERS: PCP Student in an Organized Health Care Education/Training Program; Visit Provider Student in an Organized Health Care Education/Training Program
DX: K57.92 Diverticulitis of intestine, part unspecified, without perforation or abscess without bleeding (principal); N28.9 Disorder of kidney and ureter, unspecified
CPT/HCPCS: 36415; 80048; 85025

== ENCOUNTER 2023-01-14 01:39 | Outpatient (CLI) | payer OTHER, SELFPAY ==
--- NOTE | 2023-01-14 08:13 | DI.MAMMO_ITS ---
Exam(s) MAMMO SCREENING EXAM: MAMMO SCREENING CLINICAL HISTORY: screening, Z12.39 TECHNIQUE: Mammograms were interpreted according to the usual protocol including computer analysis w [employer] CAD system, tomosynthesis and C-view imaging. COMPARISON: [id number] FINDINGS: The breasts are composed of heterogeneously dense fibroglandular densities, Breast Density category C . No suspicious masses or suspicious microcalcifications are seen. No skin thickening or abnormal axillary lymph nodes are seen. There has been no significant change from prior exams. IMPRESSION: BI-RADS Category 1, Negative mammogram. Yearly screening mammography is recommended. Breast Density Category C, heterogeneously Dense. The mammogram demonstrates the patient's breast tissue is dense. Dense breast tissue is very common a nd is not abnormal but dense breast tissue can make it harder to find cancer on a mammogram. Also, de nse breast tissue may increase breast cancer risk. This information about the result of the mammogram report was provided to the patient to raise their awareness. Use this report when you speak with the patient about their risks for breast cancer, which includes their family history. At that time, you may recommend additional screening tests (Ultrasound or MRI) as they might be useful based on their r isk. A negative radiographic report should not delay biopsy if a dominant or clinically suspicious mass is present. Up to ten percent of cancers are not identified on mammography. A negative report may reinforce clinical impression. Adenosis and dense breasts may obscure an underlying neoplasm. False positive reports average 6 to 10%.
== END 2023-01-14 01:59 ==
LOC: DI 01:40
PROVIDERS: PCP Student in an Organized Health Care Education/Training Program; Visit Provider Nurse Practitioner Women's Health
DX: Z12.31 Encounter for screening mammogram for malignant neoplasm of breast (principal)
CPT/HCPCS: 77063; 77067

== ENCOUNTER 2023-03-17 04:06 | Outpatient (CLI) | payer OTHER, SELFPAY ==
[2023-03-17 07:26] LABS: HGB 13.5 g/dL (11.2-15.7)
[2023-03-17 09:02] LABS: ALT 18 U/L (14-59); AST 12 U/L (15-37); Albumin 3.7 g/dL (3.4-5.0); Alkaline Phosphatase 60 U/L (46-116); BUN 15 mg/dL (7-18); Bilirubin, Total 0.4 mg/dL (0.2-1.0); CREATININE 0.7 mg/dL (0.55-1.02); Calculated LDL 202 mg/dL (<100); Chloride 102 mmol/L (98-107); Cholesterol 295 mg/dL (<200); Estimated GFR 103.35 (mL/min/1.73m2); Glucose 92 mg/dL (74-106); HDL Cholesterol 81 mg/dL (40-60); Potassium 4.2 mmol/L (3.5-5.1); Sodium 139 mmol/L (136-145); TSH (W/Ref FT4) 0.21 uIU/mL (0.36-3.74); Triglyceride 64 mg/dL (<150)
[2023-03-17 09:16] LABS: Vitamin D 25 Total 39.5 ng/mL (30-100)
[2023-03-17 09:23] LABS: FREE T4 0.85 ng/dL (0.76-1.46)
== END 2023-03-17 04:07 | disposition home or self-care (01) ==
LOC: LBO 04:06
PROVIDERS: PCP Student in an Organized Health Care Education/Training Program; Visit Provider Student in an Organized Health Care Education/Training Program
DX: I10 Essential (primary) hypertension (principal); Z91.89 Other specified personal risk factors, not elsewhere classified; E04.2 Nontoxic multinodular goiter; Z78.0 Asymptomatic menopausal state
CPT/HCPCS: 36415; 80053; 80061; 82306; 84439; 84443; 85018

== ENCOUNTER → 2023-04-20 00:21 | Outpatient (CLI) | payer OTHER, SELFPAY ==
--- NOTE | 2023-04-20 07:30 | DI.US_ITS ---
Exam(s) US NEEDLE LOCAL OTHER WO RAD EXAM: Right thyroid nodule,E04.2, ULTRASOUND GUIDED BX COMPARISON: No exams were available for comparison TECHNIQUE: Ultrasound performed using standard protocol. FINDINGS: Sonography was provided for Dr. Marshall during the performance of a right thyroid nodule biopsy. Ple ase refer to the procedure report for complete details. DATA REPOSITORY:
--- NOTE | 2023-04-20 12:23 | PAPNONF_PTH ---
PATIENT: Leigh Ann Quinones LOC: [facility] U#:[id number] AGE/SX: 55/F ROOM: RE04/20/[address]: Juvenal Marshall MD : 1970 BED: DIS: SPEC #: [id number] RECD: 04/20/23 13:11 STATUS: JET RECharly #: [id number] NETO: 04/20/23 12:[address]: Juvenal Marshall DEPT: [facility] Cytology RECD BY: Beatris Truong ENTERED: 04/20/23 13:11 SP TYPE: CYNDI DUMONT DR: Roxana Breen DO Tissues: 1 - BODY FLUID CYTO-FINE NEEDLE ASPIRATE-[facility] Procedures: BODY FLUID CYTO-FINE NEEDLE ASPIRATE-[facility] Comments: [id number] (PATH FNA CONSULT) (REFRIGERATED)
--- NOTE | 2023-04-20 12:47 | OPPNE_ITS ---
Date of service: 04/20/23 Time of Service: 12:47 Procedure Note Date of procedure: 04/20/23 Procedure: Ultrasound-guided FNA, right thyroid nodule, pathology present Procedure Diagnosis: Right TR 3 nodule meeting criteria for biopsy Procedure Indications: The patient has a right-sided TR 3 lesion meeting criteria for biopsy. Options were explained to the patient regarding further management. She wished to undergo the above procedure. Consent was filled out and signed prior to procedure. Procedure Description: After the patient was positioned in supine position with her neck slightly extended the patient was prepped and draped in appropriate fashion and ultrasound used to localize the thyroid nodule of concern on the right. 1% lidocaine with 1/100,000 epinephrine was injected in the skin and subcutaneous tissues overlying the thyroid nodule and then ultrasound used to guide a 25- gauge needle into the thyroid nodule. Multiple passes were made through the thyroid nodule, and cellular adequacy was verified by pathology. 2 additional passes were made for potential Afirma testing. After ensuring adequate hemostasis, a sterile dressing was applied. The patient was then allowed to sit and then stand. Her vital signs remained stable. She will remove the bandage in a couple of hours. She will call with any signs of infection. She will use Tylenol or ibuprofen for any discomfort. She will call if she does not hear from me within 1 week with regard to pathology results. She had no further questions. She is comfortable with the plan.
== END ==
PROVIDERS: PCP Student in an Organized Health Care Education/Training Program; Visit Provider Otolaryngology
DX: E04.2 Nontoxic multinodular goiter (principal)
CPT/HCPCS: 10005; 76942; 88104

== ENCOUNTER 2024-02-01 04:39 | Outpatient (CLI) | payer OTHER, SELFPAY ==
[2024-02-01 07:37] LABS: HCT 42.2 % (36.0-46.0); HGB 13.8 g/dL (11.2-15.7); MCH 29.4 pg (27.0-33.0); MCHC 32.7 % (32.0-36.0); MCV 90 fL (80-95); MPV 9.8 fL (8.0-11.0); Platelet Count 236 10^3/uL (130-400); RBC 4.69 10^6/uL (3.93-5.22); RDW 13.3 % (11.7-14.6); RDW-SD 44.2 fL; WBC 3.67 10^3/uL (4.4-10.8)
[2024-02-01 07:58] LABS: BUN 13 mg/dL (7-18); CREATININE 0.7 mg/dL (0.55-1.02); Calcium 8.9 mg/dL (8.5-10.1); Chloride 105 mmol/L (98-107); Estimated GFR 102.71 (mL/min/1.73m2); Glucose 95 mg/dL (74-106); Potassium 4.4 mmol/L (3.5-5.1); Sodium 142 mmol/L (136-145)
== END 2024-02-01 04:40 | disposition home or self-care (01) ==
LOC: LBO 04:39
PROVIDERS: PCP Student in an Organized Health Care Education/Training Program; Visit Provider Student in an Organized Health Care Education/Training Program
DX: Z87.19 Personal history of other diseases of the digestive system (principal)
CPT/HCPCS: 36415; 80048; 85027

== ENCOUNTER 2024-04-27 02:06 | Outpatient (CLI) | payer OTHER, SELFPAY ==
[2024-04-27 15:28] LABS: TSH 0.05 uIU/Ml (0.36-3.74)
[2024-04-27 22:19] LABS: T3,Free 4.9 pg/mL (2.8-5.3)
[2024-04-27 22:57] LABS: Thyroglobulin Antibody <15 U/mL (<=60); Thyroperoxidase Antibody <28 U/mL (<=60)
== END 2024-04-27 02:07 | disposition home or self-care (01) ==
LOC: LBO 02:06
PROVIDERS: PCP Student in an Organized Health Care Education/Training Program; Visit Provider Otolaryngology
DX: E04.2 Nontoxic multinodular goiter (principal)
CPT/HCPCS: 36415; 86376; 84439; 84443; 84481

== ENCOUNTER 2024-09-20 02:51 | Outpatient (CLI) | payer OTHER, SELFPAY ==
--- NOTE | 2024-09-20 06:30 | DI.MAMMO_ITS ---
Exam(s) MAMMO SCREENING EXAM: MAMMO SCREENING CLINICAL HISTORY: screening,z12.39 TECHNIQUE: Mammograms were interpreted according to the usual protocol including computer analysis w [email or web address] CAD system, tomosynthesis and C-view imaging. COMPARISON: 2014 through 2022 FINDINGS: The breasts are composed of scattered fibroglandular densities, Breast Density category B. No suspicious masses or suspicious microcalcifications are seen. No skin thickening or abnormal axillary lymph nodes are seen. There has been no significant change from prior exams. IMPRESSION: BI-RADS Category 1, Negative mammogram Yearly screening mammography is recommended. Breast Density - Category B, scattered fibroglandular densities. A negative radiographic report should not delay biopsy if a dominant or clinically suspicious mass is present. Up to ten percent of cancers are not identified on mammography. A negative report may reinforce clinical impression. Adenosis and dense breasts may obscure an underlying neoplasm. False positive reports average 6 to 10%. Patient will receive a letter notifying them of these results.
== END 2024-09-20 03:11 ==
LOC: DI 02:51
PROVIDERS: PCP Nurse Practitioner; Visit Provider Nurse Practitioner
DX: Z12.31 Encounter for screening mammogram for malignant neoplasm of breast (principal); R92.323 Mammographic fibroglandular density, bilateral breasts
CPT/HCPCS: 77063; 77067

== ENCOUNTER 2024-11-01 10:48 | Outpatient (REF) | payer OTHER, SELFPAY ==
--- NOTE | 2024-11-01 10:25 | PAPFT_PTH ---
PATIENT: Leigh Ann Quinones LOC: [facility] U#:[id number] AGE/SX: 54/F ROOM: RE11/01/[address]: Rachel Givens NP : 1970 BED: DIS: 11/01/2024 SPEC #: [id number] RECD: 11/01/24 12:52 STATUS: JET REQ #: [id number] NETO: 11/01/24 10:[address]: Rachel Givens NP DEPT: [facility] Cytology RECD BY: Beatris Truong ENTERED: 11/01/24 12:52 SP TYPE: PAPFT OTHR DR: Katelynn Augustin APRN Tissues: 1 - CX/ENDOCX FOR PAP SMEARS Procedures: PAP THIN PREP/[facility] Screening HPV DNA PROBE Comments: [id number] (HPV 16 & 18/45)
== END 2024-11-01 10:49 | disposition home or self-care (01) ==
LOC: LBN 10:48
PROVIDERS: PCP Nurse Practitioner; Visit Provider Nurse Practitioner Women's Health
DX: Z12.4 Encounter for screening for malignant neoplasm of cervix (principal); R87.618 Other abnormal cytological findings on specimens from cervix uteri
CPT/HCPCS: 88142; 87624

== ENCOUNTER 2024-12-14 03:24 | Outpatient (CLI) | payer OTHER, SELFPAY ==
[2024-12-14 08:06] LABS: Calculated LDL 208 mg/dL (<100); Cholesterol 305 mg/dL (<200); HDL Cholesterol 81 mg/dL (>or=50); Triglyceride 80 mg/dL (<150)
[2024-12-14 08:26] LABS: Glucose 97 mg/dL (74-106)
== END 2024-12-14 03:25 | disposition home or self-care (01) ==
LOC: LBO 03:25
PROVIDERS: PCP Nurse Practitioner; Visit Provider Nurse Practitioner Family
DX: Z00.00 Encounter for general adult medical examination without abnormal findings (principal)
CPT/HCPCS: 36415; 80061; 82947

== ENCOUNTER 2024-12-21 03:15 | Outpatient (CLI) | payer OTHER, SELFPAY ==
[2024-12-26 16:37] LABS: Apolipoprotein B, Serum 121 mg/dL (48-124); Beta VLDL Cholesterol Not Detected mg/dL (<15); Beta VLDL Triglycerides Not Detected mg/dL (<15); Cholesterol, Total, CDC 282 mg/dL; Chylomicron Cholesterol Not Detected; Chylomicron Triglycerides Not Detected; HDL Cholesterol, CDC 73 mg/dL (>=50); LDL Cholesterol 145 mg/dL; LDL Triglycerides 37 mg/dL (<=50); Lp(a) Cholesterol 40 mg/dL (<5); LpX Not detected; Triglycerides, CDC 99 mg/dL; VLDL Cholesterol 24 mg/dL (<30); VLDL Triglycerides 41 mg/dL (<120)
== END 2024-12-21 03:16 | disposition home or self-care (01) ==
LOC: LBO 03:15
PROVIDERS: PCP Nurse Practitioner; Visit Provider Nurse Practitioner Family
DX: E78.00 Pure hypercholesterolemia, unspecified (principal)
CPT/HCPCS: 36415; 80061; 82172; 82664

== ENCOUNTER 2025-02-27 03:47 | Outpatient (CLI) | payer OTHER, SELFPAY ==
[2025-03-05 16:45] LABS: Apolipoprotein B, Serum 90 mg/dL (48-124); Beta VLDL Cholesterol Not Detected mg/dL (<15); Beta VLDL Triglycerides Not Detected mg/dL (<15); Cholesterol, Total, CDC 221 mg/dL; Chylomicron Cholesterol Not Detected; Chylomicron Triglycerides Not Detected; HDL Cholesterol, CDC 70 mg/dL (>=50); LpX Not detected; Triglycerides, CDC 92 mg/dL; VLDL Triglycerides 36 mg/dL (<120)
== END 2025-02-27 03:48 | disposition home or self-care (01) ==
LOC: LBO 03:47
PROVIDERS: PCP Nurse Practitioner Family; Visit Provider Nurse Practitioner Family
DX: E78.41 Elevated Lipoprotein(a) (principal); E78.00 Pure hypercholesterolemia, unspecified
CPT/HCPCS: 36415; 80061; 83695; 82172; 82664

== ENCOUNTER 2025-03-06 16:23 | Outpatient (CLI) | payer OTHER, SELFPAY ==
[2025-03-06 15:02] LABS: ESR 5 mm/hr (0-30)
[2025-03-06 15:18] LABS: C-Reactive Protein 0.80 mg/dL (<or=0.5); Estimated GFR 75.50 (mL/min/1.73m2)
[2025-03-06 15:23] LABS: ALT 31 U/L (14-59); AST 16 U/L (15-37)
[2025-03-07 12:35] LABS: Creatine Kinase 47 U/L (26-192)
== END 2025-03-06 16:24 | disposition home or self-care (01) ==
LOC: LBO 16:23
PROVIDERS: PCP Nurse Practitioner Family; Visit Provider Nurse Practitioner Family
DX: M25.531 Pain in right wrist (principal); M25.532 Pain in left wrist
CPT/HCPCS: 36415; 82550; 85652; 82565; 84450; 84460; 86140